=== PATIENT | female | born 1980 | race Caucasian/White ===

== ENCOUNTER → 2020-03-05 | Outpatient (CLI) | payer OTHER ==
[~2020-03-05] MED LIST: DOCU100C16 PO; IBUP80TA PO; PRENTAB9 PO
[2020-03-05 15:57] LABS: BASO % 0.3 % (0.0-1.0); EOS # 0.1 10^3/uL (0.0-0.5); EOS % 0.6 % (0.0-3.0); HEMOGLOBIN 11.1 g/dl (12.0-15.5); LYMPH # 1.6 10^3/uL (1.5-5.0); LYMPH % 14.4 % (24.0-44.0); MEAN CORPUSCULAR HEMOGLOBIN 32.2 pg (27.0-33.0); MEAN CORPUSCULAR HGB CONC 33.6 g/dl (32.0-36.5); MEAN CORPUSCULAR VOLUME 95.7 fl (80.0-96.0); MONO # 0.6 10^3/uL (0.0-0.8); MONO % 5.3 % (0.0-5.0); NEUTROPHILS # 8.5 10^3/uL (1.5-8.5); NEUTROPHILS % 78.3 % (36.0-66.0); PLATELET COUNT, AUTOMATED 173 10^3/uL (150-450); RED BLOOD COUNT 3.45 10^6/uL (4.00-5.40); WHITE BLOOD COUNT 10.8 10^3/uL (4.0-10.0)
== END ==
LOC: M PLALAB 13:37
PROVIDERS: ATTEND Advanced Practice Midwife
DX: Z34.83 Encounter for supervision of other normal pregnancy, third trimester (principal)

== ENCOUNTER → 2020-03-26 | Outpatient (REF) | payer OTHER | LOC: M SFHCWAGY 17:06 | PROVIDERS: ATTEND Obstetrics & Gynecology | DX: Z3A.36 36 weeks gestation of pregnancy (principal) ==

== ENCOUNTER 2020-04-15 09:07 | Inpatient (IN) | payer OTHER ==
[~2020-04-15] VITALS: Ht 160 cm; Wt 73.6 kg
[2020-04-15] VITALS (36 sets, daily range): BP systolic 99–128; BP diastolic 51–90
[2020-04-15] MEDS ORDERED: miSOPROStol 50 MCG 1/2 TAB (S0191) PV ONE (09:30)
[2020-04-15] MEDS ORDERED: LACTATED RINGER'S 1000 ML IV STA (09:32)
[2020-04-15] MEDS ORDERED: PRENTAB9 PO (10:09)
[2020-04-15 10:16] LABS: HEMATOCRIT 33.5 % (36.0-47.0); HEMOGLOBIN 11.3 g/dl (12.0-15.5); MEAN CORPUSCULAR HEMOGLOBIN 31.4 pg (27.0-33.0); MEAN CORPUSCULAR HGB CONC 33.7 g/dl (32.0-36.5); MEAN CORPUSCULAR VOLUME 93.1 fl (80.0-96.0); PLATELET COUNT, AUTOMATED 175 10^3/uL (150-450); WHITE BLOOD COUNT 10.3 10^3/uL (4.0-10.0)
--- NOTE | 2020-04-15 10:27 | HPEPDOC ---
Obstetrical History & Physical General Date of Admission Apr 15, 2020 at 09:07 History of Present Illness Luann is a 39yo with SIUP at 39w4d by lmp presenting for scheduled IOL 07/27 AMA. She feels well, no complaints. No vaginal bleeding, LOF, regular/painful ctx. Good movement. Chief Complaint: Induction of labor Information Provided By: Patient Care Care: Good Care (transferred to our office 3rd trimester) Dating Final EDC: Apr 18, 2020 Final EDC by: LMP Antepartum Course Diagnos(e)s AMA Past Medical History Past Obstetrical History : Past Obstetrical History: Multigravida (06/23/2017 uncomplicated VAVD at 41wk, 7lb2oz M. 03/2019 8wk sab with D&C) [employer] History: No pertinent history Past Medical History Medical History Benign Surgical History: Dilatation and Curettage Family History Significant Family History: No pertinent family hx Social History Marital Status: Family situation: Spouse/partner home Psychosocial History: No pertinent psych hx * Smoker: non-smoker Alcohol: Denies Drugs: denies Allergies Coded Allergies: No Known Allergies (Unverified , 04/15/20) Medications Scheduled No.137/Iron/Folic Acd ( Vitamin Tablet) 1 Each Tablet, 1 TAB PO DAILY Physical Examination Physical Examination GENERAL: Alert and oriented times three. ABDOMEN: Gravid and non-tender to touch. FETUS: Is vertex (VTX) by sterile vaginal examination (SVE) EXTREMITIES: No edema of BLE Pertinent Laboratoy Data Blood Type: O+ (labs were manually entered into [facility] from records sent by [place]) RBC Antibody Screen: Negative HIV: Negative Hepatitis B: Negative Hepatitis C: Unknown Rapid Plasma Reagin: Nonreactive Rubella: Immune Chlamydia/Gonorrhea: Negative Group B Streptococcus: Negative Glucose Tolerance Test: 82 Anatomy Ultrasound Ultrasound Date: Dec 04, 2019 Placenta Location: Anterior Normal Anatomy: Yes Placenta Previa: No Steroid Therapy Steroid Therapy: No Vaginal Examination Dilation: 1cm Effacement: 70% Station: -2 Cervical Consistency: Soft Cervical Position: Middle Presentation: Cephalic presentation Assessment Heart Rate (FHR): 140 Variability: Moderate Accelerations: Positive Decelerations: None Tocometer Contractions: Yes Frequency: irregular Assessment/Plan Assessment Luann is a 39yo with SIUP at 39w4d by lmp presenting for scheduled IOL 2/2 AMA. Vitals wnl, benign exam. Cat I FHRT. Cephalic by SCE. GBS negative. SCE /-, valentine cervical bulb placed with 40cc NS and 50mcg PV cytotec- well tolerated. PMhx benign PNC only complicated by AMA, transfer in during 3rd trimester Plan Admit and orient. Cio and consent. Diet: regular for breakfast/lunch then clear liquids Group B Streptococcus (GBS) negative Labs and intravenous (IV) per unit protocol. Counseled on valentine bulb, cytotec, Pitocin and induction of labor (IOL). Will re- eval in 4hr and either re-dose cytotec or start pitocin as needed. Lactated Ringers (LR): Bolus 800 mL, then at 125 mL/hr prior to epidural Anticipate normal spontaneous delivery () MD Hilda Jorgensen Katrina D MD Apr 15, 2020 09:49
[2020-04-15] MEDS ORDERED: PROMETHAZINE INJ 25 MG/ML VIAL (J2550) IV PRN (10:45)
[2020-04-15] MEDS ORDERED: BUTORPHANOL 2 MG/ML INJ (J0595) IV PRN (10:45)
[2020-04-15] MEDS ORDERED: OXYTOCIN DRIP 30 UNITS in IV 1 EA IV SCH ×2 (14:30→21:46)
[2020-04-15] MEDS ORDERED: FENTANYL 2MCG/ML ROPIVACAINE 0.2% IN 0.9% NACL 100ML IVBAG As Ordered ONE (14:55)
[2020-04-15] MEDS: LR 1,000 ML IV SCH ×2 (15:23→17:43)
[2020-04-15] MEDS ORDERED: ONDANSETRON 4MG/2ML VIAL IV PRN (16:15)
[2020-04-15] MEDS ORDERED: REFRIGERATOR IV KEYS XX PRN (16:15)
[2020-04-15] MEDS ORDERED: EPIDURAL/PCA KEYS XX PRN (16:15)
[2020-04-15] MEDS ORDERED: diphenhydrAMINE 50MG/ML VIAL (J1200) IV PRN (16:15)
[2020-04-15] MEDS ORDERED: NALOXONE INJ 0.4MG/1ML VIAL (J2310 PER 1MG) IV PRN (16:15)
[2020-04-15] MEDS ORDERED: LACTATED RINGER'S 1000 ML IV PRN (16:15)
[2020-04-15] MEDS ORDERED: FENTANYL/ROPIVACAINE/NACL BAG 100 ML EPIDURAL SCH (16:15)
[2020-04-15] MEDS ORDERED: EPIDURAL COMMENT XX SCH (16:15)
[2020-04-15] MEDS ORDERED: ePHEDrine SULFATE 25 MG/5 ML(5MG/ML) SYRINGE IV PRN (16:15)
--- NOTE | 2020-04-15 19:56 | IPNPDOC ---
Text Note Date of Service The patient was seen on 04/15/20. NOTE Intrapartum Note Pt comfortable with epidural. Pitocin at 4mu. Vitals wnl, afebrile Cat I FHRT ctx q2-3min SCE: /-2, AROM performed, clear fluid, well tolerated Plan to continue titrating pitocin per protocol Plan to closely observe Will re-check in 2-4hr or earlier as indicated Jesenia Stevens MD VS,Marko, I+O VS, Marko I+O Laboratory Tests 04/15/20 09:59 Vital Signs Date Time Temp Pulse Resp B/P (MAP) Pulse Ox O2 Delivery O2 Flow Rate FiO2 04/15/20 17:19 65 99/54 (69) 04/15/20 13:33 18 Jesenia Stevens MD Apr 15, 2020 19:56
--- NOTE | 2020-04-15 21:54 | DNPDOC ---
[facility] Delivery Note Delivery Note DATE OF DELIVERY: 15 Apr 2020 PREDELIVERY DIAGNOSIS: 39w4d IOL for AMA POST DELIVERY DIAGNOSIS: Delivered. PROCEDURE: Spontaneous vaginal delivery BUILDINGS PAINTER: Dr. Jesenia Stevens MD ANESTHESIA: epidural ESTIMATED BLOOD LOSS: 200 mL. FINDINGS: 7 pound 1 ounce (3200g) female infant, Score 8/9 DELIVERY SUMMARY: Luann is a 39yo [id number] s/p uncomplicated after undergoing IOL for AMA, delivering at 2130 on 04/15/20. She had valentine cervical bulb placed with vaginal cytotec, then was started on pitocin. She received an epidural and then had AROM, clear. She progressed quickly and at C/C/0 she began pushing. With a few sets of pushes, 's head delivered OA, restituted KEVIN. The left anterior shoulder delivered with ease and the corpus immediately followed. Two compound hands, and cord was wrapped around an arm. The was placed on the maternal abdomen, spontaneous cry noted. Nose and mouth suctioned with bulb suction, apgars 8/9. After two minutes, cord was clamped and cut by FOB. Cord blood obtained for MBT O pos. With traction on the cord and uterine massage, placenta delivered spontaneously and intact with centrally inserted 3 vessel cord. IV pitocin given per protocol. More uterine massage performed and fundus then firm at u-2cm. Inspection of vagina and perineum revealed small intra-vagin al 1mll repaired with two figure of 8's using 3-0 vicryl with excellent reapproximation and complete hemostasis. Both mom and baby were doing well when I left the room. All counts of instruments and sponges are correct. MD Hilda Jorgensen Katrina D MD Apr 15, 2020 21:54
[2020-04-15] MEDS ORDERED: MEASLES,MUMPS,RUBELLA VACCINE INJ (MMR-II) (90707) SC SCH (22:00)
[2020-04-15] MEDS ORDERED: DIBUCAINE 1% OINTMENT 30GM TOP PRN (22:00)
[2020-04-15] MEDS ORDERED: DOCUSATE SODIUM 100 MG CAP PO PRN (22:00)
[2020-04-15] MEDS ORDERED: IBUPROFEN 600MG TAB PO PRN (22:00)
[2020-04-15] MEDS ORDERED: RHOGAM 300 MCG (1500 IU) INJ (J2790) IM SCH (22:00)
[2020-04-15] MEDS: ACETAMINOPHEN 500 MG TAB PO PRN (22:46)
[2020-04-16 00:40] VITALS: BP 129/59
[2020-04-16] MEDS: IBUPROFEN 800 MG TAB PO PRN ×2 (05:13→14:30)
[2020-04-16 06:03] VITALS: BP 118/71
--- NOTE | 2020-04-16 08:35 | IPNPDOC ---
Progress Note Date of Service: Apr 16, 2020 Day#: 1 Progress Note PPD 1 SUBJECT: Luann is a 39yo [id number] s/p uncomplicated after undergoing IOL for AMA, delivering at 2130 on 04/15/20, doing well day #1. She has been ambulating, voiding spontaneously without issue and tolerating regular diet. Breast feeding without issue. Reports lochia is like a normal period. No f/c/n/v/CP/SOB/lightheadedness/dizziness. OBJECTIVE: VITAL SIGNS: Within normal limits, afebrile. Alert and oriented times three. Abdomen: Fundus firm at U-2. Soft, NTTP. Extremities: no pain with palpation of calves ASSESSMENT: Luann is a 39yo [id number] s/p uncomplicated after undergoing IOL for AMA, delivering at 2130 on 04/15/20, doing well day #1. Vitals within normal limits, afebrile, hemodynamically stable with no evidence of infection. PLAN: 1. Discharge to home today. 2. Tylenol and Motrin for pain. 3. Encourage breast feeding and ambulation. 4. Condoms for now, likely to get vasectomy 5. Routine PP visit in 6 weeks in clinic. 6. Discussed return precautions at length. Jesenia Stevens MD VS, I&O, 24H, [facility] Vital Signs/I&O Vital Signs Date Time Temp Pulse Resp B/P (MAP) Pulse Ox O2 Delivery O2 Flow Rate FiO2 04/16/20 06:03 97.7 67 18 118/71 (87) 04/16/20 00:40 97 I&O- Last 24 Hours up to 6 AM 04/16/20 05:59 Intake Total 1500 ml Output Total 1250 ml Balance 250 ml Laboratory Data 24H LABS Laboratory Tests 2 04/15/20 09:59: Nucleated Red Blood Cells % (auto) 0.0, Syphilis Serology NONREACTIVE, Hepatitis B Surface Antigen (Rapid) NEGATIVEL 04/15/20 10:34: Serology Scanned Report Hepatitis B Testing CBC/BMP Laboratory Tests 04/15/20 09:59 Jesenia Stevens MD Apr 16, 2020 08:35
[2020-04-16] MEDS ORDERED: DOCU100C16 PO (08:38)
[2020-04-16] MEDS ORDERED: IBUP80TA PO (08:38)
--- NOTE | 2020-04-16 08:40 | DS.PDOC ---
Discharge Summary General Date of Admission Apr 15, 2020 at 09:07 Date of Discharge Apr 16, 2020 Discharge Summary PROCEDURES PERFORMED DURING STAY: spontaneous vaginal delivery ADMITTING DIAGNOSES: 1. IOL for AMA at term DISCHARGE DIAGNOSES: 1. IOL for AMA at term COMPLICATIONS/CHIEF COMPLAINT: Induction. HISTORY OF PRESENT ILLNESS/HOSPITAL COURSE: Luann is a 39yo [id number] s/p uncomplicated after undergoing IOL for AMA, delivering at 2130 on 04/15/20. She had a benign course. At time of discharge, vitals were within normal limits, afebrile, hemodynamically stable with no evidence of infection. DISCHARGE MEDICATIONS: Please see below. ALLERGIES: Please see below. PHYSICAL EXAMINATION ON DISCHARGE: VITAL SIGNS: Within normal limits, afebrile. Alert and oriented times three. Abdomen: Fundus firm at U-2. Soft, NTTP. Extremities: no pain with palpation of calves LABORATORY DATA: Please see below. ACTIVITY: As tolerated, vaginal rest 6 weeks DIET: regular DISPOSITION: home DISCHARGE PLAN/INSTRUCTIONS: 1. Discharge to home today. 2. Tylenol and Motrin for pain. 3. Encourage breast feeding and ambulation. 4. Condoms for now, likely to get vasectomy 5. Routine PP visit in 6 weeks in clinic. 6. Discussed return precautions at length. DISCHARGE CONDITION: Stable TIME SPENT ON DISCHARGE: Greater than 20 minutes. Jesenia Stevens MD Vital Signs/I&Os Vital Signs Date Time Temp Pulse Resp B/P (MAP) Pulse Ox O2 Delivery O2 Flow Rate FiO2 04/16/20 06:03 97.7 67 18 118/71 (87) 04/16/20 00:40 97 I&O- Last 24 Hours up to 6 AM 04/16/20 05:59 Intake Total 1500 ml Output Total 1250 ml Balance 250 ml Laboratory Data Labs 24H Laboratory Tests 2 04/15/20 09:59: Nucleated Red Blood Cells % (auto) 0.0, Syphilis Serology NONREACTIVE, Hepatitis B Surface Antigen (Rapid) NEGATIVEL 04/15/20 10:34: Serology Scanned Report Hepatitis B Testing CBC/BMP Laboratory Tests 04/15/20 09:59 Discharge Medications Scheduled No.137/Iron/Folic Acd ( Vitamin Tablet) 1 Each Tablet, 1 TAB PO DAILY, (Reported) Scheduled PRN Docusate Sodium (Docusate Sodium) 100 Mg Capsule, 100 MG PO QHSP PRN for CONSTIPATION Ibuprofen (Ibuprofen) 800 Mg Tablet, 800 MG PO Q8HP PRN for PAIN LEVEL 6-10 Allergies Coded Allergies: No Known Allergies (Unverified , 04/15/20) Jesenia Stevens MD Apr 16, 2020 08:40
[2020-04-16] MEDS: ACETAMINOPHEN 500 MG TAB PO PRN (09:36)
[2020-04-16] MEDS: PRENATAL VITAMINS CHEWABLE TABLET PO SCH (09:36)
[2020-04-16 18:09] VITALS: BP 109/52
[2020-04-16] MEDS: ACETAMINOPHEN TAB 650MG DOSE (2X325MG) PO PRN (21:00)
[2020-04-17] MEDS: IBUPROFEN 800 MG TAB PO PRN (02:24)
[2020-04-17 06:00] VITALS: BP 106/55
[2020-04-17] MEDS: PRENATAL VITAMINS CHEWABLE TABLET PO SCH (08:21)
[2020-04-17] MEDS: ACETAMINOPHEN TAB 650MG DOSE (2X325MG) PO PRN (12:27)
== END 2020-04-17 15:30 | disposition home or self-care (01) | DRG 560 ==
LOC: M LDI 09:07 → M OBS 04-16 00:38
PROVIDERS: ADMIT Obstetrics & Gynecology; ATTEND Obstetrics & Gynecology
PROC: 10E0XZZ Delivery of Products of Conception, External Approach (ICD-10-PCS; principal; 2020-04-15)
PROC: 0HQ9XZZ Repair Perineum Skin, External Approach (ICD-10-PCS; 2020-04-15)
PROC: 3E0P7GC Introduction of Other Therapeutic Substance into Female Reproductive, Via Natural or Artificial Opening (ICD-10-PCS; 2020-04-15)
PROC: 10907ZC Drainage of Amniotic Fluid, Therapeutic from Products of Conception, Via Natural or Artificial Opening (ICD-10-PCS; 2020-04-15)
DX: O32.6XX0 Maternal care for compound presentation, not applicable or unspecified (principal); Z3A.39 39 weeks gestation of pregnancy; O69.82X0 Labor and delivery complicated by other cord entanglement, without compression, not applicable or unspecified; O70.0 First degree perineal laceration during delivery; Z37.0 Single live birth